=== PATIENT | female | born 1965 | race African-American/Black ===

== ENCOUNTER 2019-09-26 09:46 | Outpatient (CLI) | payer MEDICARE, MEDICAID ==
[2019-09-26] MEDS ORDERED: Magnevist 469MG/ML 20 ML VIAL ONE (11:17)
--- NOTE | 2019-09-26 11:42 | MRI ---
MRI LUMBAR SPINE WITH AND WITHOUT CONTRAST: DATE: 09/26/2019 HISTORY: 53-year-old female with low back pain and bilateral lumbar radiculopathy COMPARISON: None available TECHNIQUE: Multiple sequences obtained in axial and sagittal planes, pre and post IV injection of gadolinium-bas ed contrast agent. FINDINGS: For the purposes of this report, it will be assumed that there are 5 lumbar-type vertebrae. Vertebral body heights are maintained. There is moderate to severe disc space narrowing at L4-5, with Schmorl's nodes and Modic type II endp late marrow changes. There are no high-grade bone marrow signal abnormalities elsewhere. The rest of the disc spaces are maintained. Alignment is normal. Conus medullaris terminates at L2. T12-L1:Normal L1-2:Mild bilateral facet hypertrophy. No other significant findings. L2-3:Mild bilateral degenerative facet hypertrophy and ligamentum flavum thickening. No high-grade ne ural foraminal stenosis or high-grade central stenosis. L3-4:Mild bilateral degenerative facet hypertrophy and moderate ligamentum flavum thickening. Very mi ld central spinal canal stenosis. Posterior epidural fat pad. Mild thecal sac stenosis. Mild to moderate bilateral neural foraminal stenosis. L4-5:Midline laminectomy defect. No central stenosis or thecal sac stenosis. Enhancing postsurgical s car tissue along the posterior and right and left posterior extradural space. Postsurgical scar tissue with enhancement in the right posterior aspect of the intervertebral disc. This is within a ce ntral and bilateral paracentral shallow disc herniation that indents the ventral aspect of the thecal sac. The right L5 nerve root is contacted by the enhancing scar tissue. Moderate right neural foraminal stenosis. Mild to moderate left neural foraminal stenosis. L5-S1:Small central and right paracentral disc protrusion abuts and slightly deforms the right S1 ner ve root at the right lateral recess. Mild central spinal canal stenosis. Moderate right lateral recess stenosis. Mild bilateral degenerative facet changes. Moderate bilateral neural foraminal steno sis. IMPRESSION: 1) high-grade degenerative disc disease at L4-5. 2) the rest of the levels have little or no degenerative disc disease. 3) status post midline laminectomy at L4-5. Postsurgical scar tissue around the right L5 nerve root 4) no severe central spinal canal stenosis at any level.
--- NOTE | 2019-09-26 11:48 | RAD ---
4 views cervical spine: 09/26/2019 COMPARISON: None HISTORY: Lumbar radiculopathy, spinal stenosis, low back pain FINDINGS: Lumbar pedicles appear intact on frontal imaging. There is disc space narrowing with degene rative endplate change and anterior osteophyte formation at L4-5. There is facet hypertrophy bilaterally at L4-5. The neutral lateral examination, flexion lateral examination, and extension lateral examination demon strates no anterolisthesis or retrolisthesis. The patient appears status post laminectomy at the L4-5 level. IMPRESSION: Degenerative change at the L4-5 level.
== END 2019-09-26 09:47 | disposition home or self-care (01) ==
LOC: BICMRI 09:46
PROVIDERS: ATTEND Physician Assistant Surgical
DX: M51.16 Intervertebral disc disorders with radiculopathy, lumbar region (principal); M48.062 Spinal stenosis, lumbar region with neurogenic claudication; M79.605 Pain in left leg; M54.5 Low back pain; M47.26 Other spondylosis with radiculopathy, lumbar region; Z98.890 Other specified postprocedural states
CPT/HCPCS: 72110; 72158; 82565; A9579

== ENCOUNTER 2022-04-08 15:15 | Inpatient (IN) | payer MEDICARE, MEDICAID ==
[2022-04-14 15:43] LABS: Hemoglobin 11.9 g/dL (12.0-15.5); Mean Corpuscular HGB CONC 33.5 g/dL (32.0-36.0); Mean Corpuscular Hemoglobin 27.7 pg (27.0-33.0); Mean Corpuscular Volume 82.8 fl (81.6-98.3); Mean Platelet Volume 10.8 fl (7.4-10.4); Platelet Count 252 10x3/uL (150-450); RBC Distribution Width 14.3 % (11.5-14.5); Red Blood Cell (RBC) Count 4.29 10x6/uL (3.90-5.03)
[2022-04-14 15:56] LABS: INR-International Normal Ratio 1.1; PTT 26.8 sec (22.0-33.0); Prothrombin Time 11.4 sec (9.5-12.1)
[2022-04-14 16:14] LABS: Anion Gap 14 mmol/L (10-20); BUN (Urea Nitrogen) 14 mg/dL (9.8-20.1); Calc. Creatinine Clearance 0 mL/min (70-130); Calcium 9.3 mg/dL (7.8-10.44); Carbon Dioxide 30 mmol/L (22-29); Chloride 102 mmol/L (98-107); Glucose 106 mg/dL (70-105); Potassium 3.6 mmol/L (3.5-5.1); Sodium 142 mmol/L (136-145)
[2022-04-17] MEDS ORDERED: Thrombin 5000 UNITS/5 ML VIAL ONE (09:59)
[2022-04-17] MEDS ORDERED: Scopolamine 1.5 mg/72 hour Patch ONE (10:05)
[2022-04-17] MEDS ORDERED: Sodium Chloride 0.9% 100 ML ONE (10:06)
[2022-04-17] MEDS ORDERED: CEFAZOLIN 2 GM VIAL ONE (10:06)
[2022-04-17] MEDS ORDERED: Midazolam HCl 2 mg/2 ml Vial ONE (10:08)
[2022-04-17] MEDS ORDERED: fentaNYL Citrate/PF 100 MCG/2 ML SYRINGE ONE (10:08)
[2022-04-17] MEDS ORDERED: Rocuronium Bromide 10 MG/ML (10ML VIAL) ONE (10:42)
[2022-04-17] MEDS ORDERED: Ondansetron PF 4 MG/2 ML Vial ONE (10:42)
[2022-04-17] MEDS ORDERED: Dexamethasone 20 MG/5 ML VIAL ONE (10:42)
[2022-04-17] MEDS ORDERED: PROPOFOL 200 MG/20 ML VIAL ONE (10:42)
[2022-04-17] MEDS ORDERED: Calcium Chloride 1 GM/10 ML Abboject SYRINGE ONE (10:42)
[2022-04-17] MEDS ORDERED: Acetaminophen 325 MG TAB PO PRN (10:57)
[2022-04-17] MEDS ORDERED: Ondansetron PF 4 MG/2 ML Vial IVP PRN (10:57)
[2022-04-17] MEDS ORDERED: Morphine 2 MG/ML VIAL SLOW IVP PRN (10:57)
[2022-04-17] MEDS ORDERED: hydrOXYzine 25 MG TAB PO PRN (10:59)
[2022-04-17] MEDS ORDERED: HYDROcodone/Acetaminophen 5/325 mg Tablet PO PRN (10:59)
[2022-04-17] MEDS ORDERED: Cyclobenzaprine 10 MG TAB PO PRN (10:59)
[2022-04-17] MEDS ORDERED: Nitroglycerin 0.4 MG TAB (25 Tab Bottle) SL PRN (10:59)
[2022-04-17] MEDS ORDERED: Diclofenac 1% 100 GM GEL TP PRN (10:59)
[2022-04-17] MEDS ORDERED: Potassium Chloride 20 MEQ TAB PO PRN (10:59)
[2022-04-17] MEDS ORDERED: Furosemide 40 MG TAB PO PRN (10:59)
[2022-04-17] MEDS ORDERED: CEFAZOLIN 2 GM in Sodium Chloride 0.9% 100 ML IVPB SCH (11:00)
[2022-04-17] MEDS ORDERED: Loratadine 10 MG TAB PO PRN (11:32)
[2022-04-17] MEDS ORDERED: SUGAMMADEX SODIUM 200 MG/2 ML VIAL ONE (12:18)
[2022-04-17] MEDS ORDERED: Cepastat Lozenges 1 LOZ PO PRN (13:22)
[2022-04-17] MEDS ORDERED: Chloraseptic Spray 180 ml Bottle PO PRN (13:22)
[2022-04-17] MEDS ORDERED: Fentanyl 100 MCG/2 ML VIAL ONE (13:43)
[2022-04-17 15:05] VITALS: BMI 41.0
[2022-04-17] MEDS: Sodium Chloride 0.9% 1,000 ML IV SCH (15:33)
[2022-04-17] MEDS ORDERED: diphenhydrAMINE 25 MG CAP PO PRN (15:37)
[2022-04-17] MEDS: CEFAZOLIN 2 GM in Sodium Chloride 0.9% 100 ML IVPB SCH (17:15)
[2022-04-17] MEDS: Carvedilol 6.25 MG TAB PO SCH (21:08)
[2022-04-17] MEDS: Atorvastatin Calcium 40 MG TAB PO SCH (21:08)
[2022-04-17] MEDS: Pregabalin 50 MG CAP PO SCH (21:08)
[2022-04-17] MEDS: Artificial Tear Sol 15 ML BOT EA EYE SCH (21:08)
[2022-04-18] MEDS: Sodium Chloride 0.9% 1,000 ML IV SCH ×2 (01:51→14:11)
[2022-04-18] MEDS: CEFAZOLIN 2 GM in Sodium Chloride 0.9% 100 ML IVPB SCH ×3 (02:24→17:24)
[2022-04-18] MEDS: Enoxaparin Sodium 40 MG/0.4 ML SYRINGE SC SCH (09:48)
[2022-04-18] MEDS: Amlodipine 5 MG TAB PO SCH (09:48)
[2022-04-18] MEDS: metFORMIN 500 MG TAB PO SCH (09:48)
[2022-04-18] MEDS: Artificial Tear Sol 15 ML BOT EA EYE SCH ×2 (09:48→20:07)
[2022-04-18] MEDS: Carvedilol 6.25 MG TAB PO SCH ×2 (09:48→20:03)
[2022-04-18] MEDS: DULoxetine 60 MG CAP PO SCH (09:49)
[2022-04-18] MEDS: Multivitamin W/ Minerals 1 TAB PO SCH (09:49)
[2022-04-18] MEDS: Pregabalin 50 MG CAP PO SCH ×2 (09:49→20:03)
[2022-04-18] MEDS: Cholecalciferol 1,000 UNITS (25 MCG) TAB PO SCH (09:49)
[2022-04-18] MEDS: Ferrous Sulfate 325 MG TAB PO SCH (09:49)
[2022-04-18] MEDS: Fluticasone Propionate Nasal Spray 16 gm Bottle NASAL SCH (09:49)
[2022-04-18] MEDS: Atorvastatin Calcium 40 MG TAB PO SCH (20:03)
[2022-04-19] MEDS: CEFAZOLIN 2 GM in Sodium Chloride 0.9% 100 ML IVPB SCH ×3 (02:24→16:01)
[2022-04-19] MEDS: Sodium Chloride 0.9% 1,000 ML IV SCH ×2 (02:24→14:18)
[2022-04-19 05:49] VITALS: TEMP 98.4
[2022-04-19] MEDS: metFORMIN 500 MG TAB PO SCH (08:27)
[2022-04-19] MEDS: Carvedilol 6.25 MG TAB PO SCH (08:27)
[2022-04-19] MEDS: Pregabalin 50 MG CAP PO SCH (08:28)
[2022-04-19] MEDS: Multivitamin W/ Minerals 1 TAB PO SCH (08:28)
[2022-04-19] MEDS: DULoxetine 60 MG CAP PO SCH (08:28)
[2022-04-19] MEDS: Ferrous Sulfate 325 MG TAB PO SCH (08:28)
[2022-04-19] MEDS: Fluticasone Propionate Nasal Spray 16 gm Bottle NASAL SCH (08:29)
[2022-04-19] MEDS: Cholecalciferol 1,000 UNITS (25 MCG) TAB PO SCH (08:29)
[2022-04-19] MEDS: Artificial Tear Sol 15 ML BOT EA EYE SCH (08:29)
[2022-04-19] MEDS: Amlodipine 5 MG TAB PO SCH (08:29)
[2022-04-19] MEDS: Enoxaparin Sodium 40 MG/0.4 ML SYRINGE SC SCH (08:29)
[2022-04-19 12:38] VITALS: BP 112/83
== END 2022-04-19 17:25 | disposition home or self-care (01) | DRG 472 ==
LOC: SURG A 04-17 08:13
PROVIDERS: ADMIT Surgery; ATTEND Surgery
PROC: 0RG1070 Fusion of Cervical Vertebral Joint with Autologous Tissue Substitute, Anterior Approach, Anterior Column, Open Approach (ICD-10-PCS; principal; 2022-04-18)
PROC: 0RB30ZZ Excision of Cervical Vertebral Disc, Open Approach (ICD-10-PCS; 2022-04-18)
PROC: 00NW0ZZ Release Cervical Spinal Cord, Open Approach (ICD-10-PCS; 2022-04-18)
DX: M47.12 Other spondylosis with myelopathy, cervical region (principal); M50.01 Cervical disc disorder with myelopathy, high cervical region; D68.69 Other thrombophilia; Z68.41 Body mass index [BMI] 40.0-44.9, adult; M48.02 Spinal stenosis, cervical region; Z20.822 Contact with and (suspected) exposure to COVID-19; E66.01 Morbid (severe) obesity due to excess calories; F32.A Depression, unspecified; F41.9 Anxiety disorder, unspecified; G89.4 Chronic pain syndrome; I10 Essential (primary) hypertension; E78.5 Hyperlipidemia, unspecified; I25.10 Atherosclerotic heart disease of native coronary artery without angina pectoris; Z79.84 Long term (current) use of oral hypoglycemic drugs; Z79.899 Other long term (current) drug therapy; Z79.82 Long term (current) use of aspirin; Z98.51 Tubal ligation status; Z90.710 Acquired absence of both cervix and uterus; Z95.1 Presence of aortocoronary bypass graft
CPT/HCPCS: 76000; 80048; 85027; 85610; 85730; 86850; 86900; 86901; 93970; C1713; J1100; J1650; J2250; J2270; J2405; J2704; J3010; J3490; J7050; U0003; U0005

== ENCOUNTER 2022-04-14 14:18 | Outpatient (CLI) | payer MEDICARE, MEDICAID | END 2022-04-14 14:19 | disposition home or self-care (01) | LOC: LABBT 14:18 | PROVIDERS: ATTEND Surgery | DX: Z01.818 Encounter for other preprocedural examination (principal); M47.12 Other spondylosis with myelopathy, cervical region; M48.02 Spinal stenosis, cervical region; M50.00 Cervical disc disorder with myelopathy, unspecified cervical region | CPT/HCPCS: 80048; 85027; 85610; 85730; 86850; 86900; 86901; 93005; U0003; U0005; 93010 ==